=== PATIENT | female | born 1995 | race Caucasian/White ===

== ENCOUNTER → 2016-10-06 | Outpatient (CLI) | payer OTHER ==
[~2016-10-06] MED LIST: AMOXICILLIN500 M1 PO; BIRTH CONTROL PILL; BIRTH CONTROL PILL PO; IBUPROFEN600 MG PO; MOTRIN PO; MOTRIN600 M1 PO; NAPROSYN500 MG; NO MEDICATIONS; OCELLA PO; ROBAXIN500 MG PO; VIBRAMYCIN100 M1 PO
--- NOTE | ~2016-10-06 | CT71 ---
[facility] A Service of [facility] RADIOLOGY TEXT RESULTS PATIENT: JADIEL CONCEPCION LOCATION: [facility] : [birth year] UNIT #: [id number] AGE: [address]: Tala Lockwood MD SEX: F ORDER DR: [id number] [place], [place] [address] [id number] O MR#: [id number] Acc #: [id number] NAME: JADIEL CONCEPCION : 1995 SEX: F STUDY DATE/TIME: 10/06/2016 15:32 UNIT: [facility] ROOM: STUDY DESCRIPTION: CT Head Wo Contrast Attending Physician: Tala Lockwood M.D. Referring Physician: Tala Lockwood M.D. Ordering Physician: Tala Lockwood M.D. Primary Care Physician: Tala Lockwood M.D. MEDICAL IMAGING REPORT This report is preliminary unless electronic signature is present EXAM CT of the head without contrast INDICATIONS Severe headaches for 3 months these have been getting worse. TECHNIQUE Axial CT images were obtained from the vertex of the skull through the skull base. No intravenous contrast material is administered. This CT exam was performed with one or more of the following radiation dose reduction techniques: automatic control, adjustment of mA and/or kV according to patient size, and iterative reconstruction. FINDINGS No acute intracranial hemorrhage is identified. Brain parenchyma is normal in attenuation with no focal areas of decreased attenuation seen. There is no midline shift or mass effect. Ventricles are normal in size. Visualized paranasal sinuses and mastoid air cells appear clear. No aggressive osseous abnormalities are seen and there are no focal soft tissue abnormalities. IMPRESSION Negative. Dictated by... Gianna Drake M.D. THIS IS AN ELECTRONICALLY VERIFIED REPORT Gianna Drake M.D. at 10/07/2016 4:42 PM AFF/rnr TD: 10/06/2016 19:02 [facility] A Service of [facility] RADIOLOGY TEXT RESULTS PATIENT: JADIEL CONCEPCION LOCATION: [facility] : [birth year] UNIT #: [id number] AGE: [address]: Tala Lockwood MD SEX: F ORDER DR: JOB #: [id number] MEDICAL IMAGING REPORT Page 1 of 1 COPY
== END | disposition home or self-care (01) ==
LOC: CCAT 15:13
DX: R51 Headache (principal)
CPT/HCPCS: 70450

== ENCOUNTER → 2016-11-29 | Outpatient (CLI) | payer OTHER ==
--- NOTE | ~2016-11-29 | US98 ---
[facility] A Service of [facility] RADIOLOGY TEXT RESULTS PATIENT: JADIEL CONCEPCION LOCATION: [facility] : [birth year] UNIT #: [id number] AGE: [address]: LEXI ROMEO SEX: F ORDER DR: [id number] [address] [address] [id number] O MR#: [id number] Acc #: [id number] NAME: JADIEL CONCEPCION : 1995 SEX: F STUDY DATE/TIME: 11/29/2016 13:21 UNIT: [facility] ROOM: STUDY DESCRIPTION: US Pelvic Non-OB Complete Attending Physician: Lexi Romeo M.D. Referring Physician: Tala Lockwood M.D. Ordering Physician: Tala Lockwood M.D. Primary Care Physician: Tala Lockwood M.D. MEDICAL IMAGING REPORT This report is preliminary unless electronic signature is present. EXAM Transabdominal and transvaginal pelvic ultrasound, 11/29/2016 HISTORY Irregular menses, irregular menstrual periods for 2 years. FINDINGS Transabdominal and transvaginal pelvic ultrasound was performed. Endovaginal ultrasound was performed for attempted better visualization of the adnexal structures. The bladder is normal in appearance. The uterus measures 8.0 cm craniocaudal x 2.9 cm AP x 5.2 cm transverse. The endometrial stripe measures 6.0 mm. The left ovary measured 4.3 cm x 3.4 cm x 1.9 cm while the right ovary measures 4.5 cm x 2.2 cm x approximately 3.0 cm. Small follicles are seen in both ovaries. Color flow Doppler images show normal blood flow to both ovaries. There is no adnexal mass and there is no free fluid in the pelvis. IMPRESSION Negative transabdominal and transvaginal pelvic ultrasound. Dictated by... Familia Gordillo M.D. THIS IS AN ELECTRONICALLY VERIFIED REPORT Familia Gordillo M.D. at 12/01/2016 2:36 PM CATIE/nadia TD: 11/30/2016 13:34 JOB #: [id number] MEDICAL IMAGING REPORT Page 1 of 1
== END | disposition home or self-care (01) ==
LOC: SGUS 12:48
DX: N92.6 Irregular menstruation, unspecified (principal)
CPT/HCPCS: 76830; 76856